=== PATIENT | male | born 1995 | race Hispanic/Latino ===

== ENCOUNTER 2019-02-01 10:36 | Emergency (ER) | payer SELFPAY ==
[2019-02-01 10:41] VITALS: BP 129/80
[2019-02-01] MEDS ORDERED: cephALEXin 500 MG CAP PO ONE (11:14)
[2019-02-01] MEDS ORDERED: SULFAMETHOXAZOLE/TRIMETHOPRIM 800/160MG DS TAB PO ONE (11:14)
--- NOTE | 2019-02-01 11:19 | Emergency Department Report ---
- General Chief complaint: Extremity Problem,Nontraumatic Stated complaint: LT ELBOW PAIN Time Seen by Provider: 02/01/19 11:12 Source: patient Mode of arrival: Ambulatory Limitations: No Limitations - History of Present Illness Initial comments: Jones is a 23 yo male with hx of IVDA who presnts with left elbow pain and swelling. The pain and swelling has been presents for several days. NO direct trauma. No fever. MD complaint: other (redness) -: Gradual, days(s) (3) Location: LUE Severity: mild Consistency: constant Improves with: none Worsens with: none Context: IVDA Associated symptoms: denies other symptoms - Related Data Previous Rx's Medication Instructions Recorded Last Taken Type Sulfamethoxazole/Trimethoprim 1 each PO BID 10 Days #20 tablet 02/01/19 Unknown Rx [Bactrim DS TAB] cephALEXin [Keflex] 500 mg PO Q6HR 10 Days #40 capsule 02/01/19 Unknown Rx Allergies Allergy/AdvReac Type Severity Reaction Status Date / Time No Known Allergies Allergy Unverified 02/01/19 10:39 Abscess Boil HPI - HPI Chief Complaint: Extremity Problem,Nontraumatic Stated Complaint: LT ELBOW PAIN Time Seen by Provider: 02/01/19 11:12 Home Medications: Previous Rx's Medication Instructions Recorded Last Taken Type Sulfamethoxazole/Trimethoprim 1 each PO BID 10 Days #20 tablet 02/01/19 Unknown Rx [Bactrim DS TAB] cephALEXin [Keflex] 500 mg PO Q6HR 10 Days #40 capsule 02/01/19 Unknown Rx Allergies/Adverse Reactions: Allergies Allergy/AdvReac Type Severity Reaction Status Date / Time No Known Allergies Allergy Unverified 02/01/19 10:39 ED Review of Systems ROS: Stated complaint: LT ELBOW PAIN Other details as noted in HPI Constitutional: denies: fever, malaise Respiratory: denies: cough, shortness of breath Cardiovascular: denies: chest pain Skin: rash, lesions, change in color ED Past Medical Hx - Past Medical History Previous Medical History?: No - Surgical History Past Surgical History?: Yes Additional Surgical History: Right eye surgery - Social History Smoking Status: Current Every Day Smoker Substance Use Type: Marijuana, Other (IV drug abuse) - Medications Home Medications: Home Medications Medication Instructions Recorded Confirmed Last Taken Type Sulfamethoxazole/Trimethoprim 1 each PO BID 10 Days #20 tablet 02/01/19 Unknown Rx [Bactrim DS TAB] cephALEXin [Keflex] 500 mg PO Q6HR 10 Days #40 capsule 02/01/19 Unknown Rx ED Physical Exam - General Limitations: No Limitations General appearance: alert, in no apparent distress - Head Head exam: Present: atraumatic, normocephalic - Eye Eye exam: Present: normal appearance. Absent: scleral icterus, conjunctival injection - ENT ENT exam: Present: mucous membranes moist - Neck Neck exam: Present: normal inspection - Neurological Exam Neurological exam: Present: alert, oriented X3 - Psychiatric Psychiatric exam: Present: normal affect, normal mood - Other Other exam information: LUE: 6 cm area erythema posterior elbow, FROM in left elbow, small central pustules, Upper extremities: multiple track julien hands and arms ED Course Vital Signs 02/01/19 10:39 Temperature 97.6 F Pulse Rate 100 H Respiratory 18 Rate Blood Pressure 129/80 O2 Sat by Pulse 100 Oximetry ED Medical Decision Making - Medical Decision Making Cellulitis abscess left upper extremity. Incision and drainage not indicated Due to lack of fluctuance and small size of abscess. Prescribed Bactrim and Keflex. With physical exam report range of motion of the extremity, I do not suspect septic joint. Discharged home. Critical care attestation.: If time is entered above; I have spent that time in minutes in the direct care of this critically ill patient, excluding procedure time. ED Disposition Clinical Impression: Cellulitis and abscess of upper extremity Disposition: - TO HOME OR SELFCARE Is pt being admited?: No Does the pt Need Aspirin: No Condition: Stable Instructions: Cellulitis (ED), Abscess (ED) Prescriptions: Sulfamethoxazole/Trimethoprim [Bactrim DS TAB] 1 each PO BID 10 Days #20 tablet cephALEXin [Keflex] 500 mg PO Q6HR 10 Days #40 capsule Referrals: [facility] [Outside] - 3-5 Days
== END 2019-02-01 11:46 | disposition home or self-care (01) ==
LOC: ED 10:36
DX: L03.114 Cellulitis of left upper limb (principal); F17.200 Nicotine dependence, unspecified, uncomplicated; F12.10 Cannabis abuse, uncomplicated; Z98.890 Other specified postprocedural states